=== PATIENT | female | born 1975 | race Caucasian/White ===

== ENCOUNTER 2017-01-20 22:45 | Emergency (ER) | payer BC, OTHER ==
[~2017-01-20] VITALS: Ht 165.1 cm; Wt 64.5 kg
[2017-01-20 22:50] VITALS: TEMP 36.9; Ht 165.1 cm; Wt 64.5 kg
[2017-01-20] MEDS ORDERED: BUPRTAB51 PO (23:47)
[2017-01-20] MEDS ORDERED: RIZA10TA18 PO (23:47)
--- NOTE | 2017-01-21 00:02 | DIAGNOSTIC IMAGING REPORT ---
LEFT FOOT 3 VIEWS CLINICAL HISTORY: Left foot injury. FINDINGS: 3 views of left foot are obtained. No prior studies are available for comparison at the time of dictation. The skeletal structures are well mineralized. There is an avulsion fracture identified along the dorsal aspect of the navicular, only seen on the lateral view. There is overlying soft tissue edema. No additional fracture is seen. The joint spaces of the foot are well-maintained. IMPRESSION: There is a navicular avulsion fracture with overlying soft tissue edema, only seen on the lateral view. Electronically signed by: Castillo Saunders M.D. 01/21/2017 12:01 AM Dictated Date/Time: 01/21/2017 12:00 AM
--- NOTE | 2017-01-21 00:18 | EMERGENCY ROOM VISIT NOTE ---
History Report prepared by Majo: Guru Lyons Under the Supervision of: Dr. Chester Farah D.O. First contact with patient: 23:24 Chief Complaint: FOOT PAIN Stated Complaint: LEFT FOOT BRUISED,CANNOT MOVE TOES History of Present Illness The patient is a 41 year old female who presents to the Emergency Room with complaints of constant left foot pain following a fall down the stairs this evening. The patient states that as she was walking down the stairs, she tried not to step on her dog and missed a step. She notes that her foot bent forward as she fell. She reports that her pain worsens when she walks and that she cannot put any weight onto her foot. She denies any other pain. Source of History: patient Onset: this evening Position: foot (left) Timing: constant Modifying Factors (Worsening): other (walking) Associated Symptoms: No neck pain, No chest pain, No abdominal pain, No back pain Review of Systems See HPI for pertinent positives & negatives. A total of 10 systems reviewed and were otherwise negative. Past Medical & Surgical Medical Problems: (1) No chronic problems Family History No pertinent family history stated. Social History Smoking Status: Current Every Day Smoker Marital Status: single Occupation Status: employed Current/Historical Medications Scheduled Bupropion (Wellbutrin-Xl), 300 MG PO DAILY Scheduled PRN Rizatriptan Benzoate (Maxalt), 10 MG PO UD PRN for Migraine Allergies Coded Allergies: No Known Allergies (Unverified , 01/20/17) Physical Exam Vital Signs Date Time Temp Pulse Resp B/P (MAP) Pulse Ox O2 Delivery O2 Flow Rate FiO2 01/20/17 22:50 36.9 85 18 110/60 98 Room Air Physical Exam CONSTITUTIONAL/VITAL SIGNS: Reviewed / noted above. GENERAL: Non-toxic in appearance. INTEGUMENTARY: Warm, dry, and Justin. HEAD: Normocephalic. EYES: without scleral icterus or trauma. ENT/OROPHARYNX: clear and moist. LYMPHADENOPATHY/NECK: Is supple without lymphadenopathy or meningismus. RESPIRATORY: Lungs clear and equal. CARDIOVASCULAR: Regular rate and rhythm. GI/ABDOMEN: Soft and nontender. No organomegaly or pulsatile mass. No rebound or guarding. Normal bowel sounds. EXTREMITIES: Warm and well perfused. Swelling, ecchymosis, and tenderness to the dorsal aspect of the left foot. BACK: No CVA tenderness. NEUROLOGICAL: Intact without focal deficits. PSYCHIATRIC: normal affect. MUSCULOSKELETAL: Normally developed with good muscle tone. Medical Decision & Procedures ER Provider Diagnostic Interpretation: Radiology results as stated below per my review and radiologist interpretation: LEFT FOOT 3 VIEWS FINDINGS: 3 views of left foot are obtained. No prior studies are available for comparison at the time of dictation. The skeletal structures are well mineralized. There is an avulsion fracture identified along the dorsal aspect of the navicular, only seen on the lateral view. There is overlying soft tissue edema. No additional fracture is seen. The joint spaces of the foot are well-maintained. IMPRESSION: There is a navicular avulsion fracture with overlying soft tissue edema, only seen on the lateral view. Electronically signed by: Castillo Saunders M.D. 01/21/2017 12:01 AM ED Course 2325: Previous medical records were reviewed. The patient was evaluated in room C12. A complete history and physical examination was performed. 0025: On reevaluation, the patient is stable. I discussed the results and findings with the patient. She verbalized agreement of the treatment plan. The patient was discharged home. Medical Decision Differential diagnosis: Etiologies such as fracture, dislocation, neurovascular compromise, compartment syndrome, soft tissue injury, as well as others were entertained. This is a 41-year-old female who presents to the ED with a chief complaint of left foot pain. Details listed above. The patient has a avulsion fracture of the navicular. She is placed in a postop shoe and crutches and referred to orthopedics. Blood Pressure Screening Patient's blood pressure: Normal blood pressure Impression Primary Impression: Navicular fracture, foot Scribe Attestation The scribe's documentation has been prepared under my direction and personally reviewed by me in its entirety. I confirm that the note above accurately reflects all work, treatment, procedures, and medical decision making performed by me. Departure Information Dispostion Home / Self-Care Referrals No Doctor, Assigned (PCP) Nolan Joseph, DO Forms HOME CARE DOCUMENTATION FORM, IMPORTANT VISIT INFORMATION Patient Instructions ED Fx Foot, My [facility] Additional Instructions Use crutches and postop shoe. Avoid activities that increase pain. Take Tylenol or Motrin for pain. Follow-up with doctors after, orthopedics for further evaluation and treatment. Call Monday for appointment.
[2017-01-21] MEDS ORDERED: OXYCODONE/ACETAMINOPHEN 5-325 TAB PO STA (00:24)
[2017-01-21] MEDS ORDERED: PERCOCET HOME PACK PO ONE (00:30)
[2017-01-21 00:46] VITALS: BP 132/79; PULSE 84; O2SAT 99
== END 2017-01-21 00:47 | disposition home or self-care (01) ==
LOC: C.EDB 22:46 → C.EDC 01-21 00:47
DX: S92.255A Nondisplaced fracture of navicular [scaphoid] of left foot, initial encounter for closed fracture (principal); X50.9XXA Other and unspecified overexertion or strenuous movements or postures, initial encounter; F17.200 Nicotine dependence, unspecified, uncomplicated

== ENCOUNTER → 2017-07-04 | Outpatient (CLI) | payer OTHER ==
[~2017-07-04] MED LIST: BUPRTAB51 PO; RIZA10TA18 PO
[2017-07-04 12:09] LABS: BASO % 0.2 %; BASO ABS # 0.02 K/uL (0-0.2); EOS % 0.6 %; EOS ABS # 0.05 K/uL (0-0.5); HEMATOCRIT 41.3 % (37-47); HEMOGLOBIN 13.9 g/dL (12.0-16.0); IG# 0.04 K/uL (0.00-0.02); LYMPH % 21.6 %; MEAN CELL VOLUME 89.4 fL (80-100); MEAN CORPUSCULAR HEMOGLOBIN 30.1 pg (25-34); MEAN CORPUSCULAR HGB CONC 33.7 g/dl (32-36); MEAN PLATELET VOLUME 10.6 fL (7.4-10.4); MONO % 4.9 %; MONO ABS # 0.43 K/uL (0.11-0.59); NEUT % 72.2 %; NEUT ABS # 6.36 K/uL (1.4-6.5); PLATELET COUNT 282 K/uL (130-400); RED CELL DISTRIBUTION WIDTH SD 42.8 fL (36.4-46.3)
[2017-07-04 12:38] LABS: FOLLICLE STIMULAT HORMONE 12.93 IU/L
== END | disposition home or self-care (01) ==
LOC: C.LAB1850 10:38
PROVIDERS: ATTEND Obstetrics & Gynecology
DX: R63.5 Abnormal weight gain (principal); R23.2 Flushing; N89.8 Other specified noninflammatory disorders of vagina; R53.83 Other fatigue; L65.9 Nonscarring hair loss, unspecified

== ENCOUNTER → 2017-07-04 | Outpatient (CLI) | payer OTHER | END | disposition home or self-care (01) | LOC: C.PAPS 13:57 | PROVIDERS: ATTEND Obstetrics & Gynecology | DX: Z12.4 Encounter for screening for malignant neoplasm of cervix (principal) ==